=== PATIENT | male | born 1980 | race Caucasian/White ===

== ENCOUNTER 2017-01-30 08:17 | Emergency (ER) | payer BC, OTHER ==
[2017-01-30] MEDS ORDERED: HYDROMORPHONE HCL 2 MG/ML VIAL IM ONE (08:55)
[2017-01-30] MEDS ORDERED: ONDANSETRON 4 MG ODT TABLET SL ONE (08:55)
--- NOTE | 2017-01-30 09:00 | Emergency Department Record ---
History of Present Illness - General Chief Complaint: Back Pain/Injury Stated Complaint: BACK PAIN Time Seen by Provider: 01/30/17 08:48 Source: Patient Mode of Arrival: Wheelchair Limitations: No limitations - History of Present Illness Initial Comments: The patient is here due to lower back pain for about 24 hours. The pain has been slowly increasing since the onset and now the patient is having trouble standing and walking due to the pain. It does radiate down the L leg at times but the patient denies any leg weakness, numbness, or any bowel or bladder issues. He states he has a long hx of chronic back problems and has had similar issues in the past and usually just lays in bed until the pain passes. This episode caused him to call his father who also has chronic back issues and his father told him to call 911 to come to the ER. Complaint: Back pain Onset/Timin -: Days(s) Similar Symptoms Previously: Yes Place: Home, Work Radiation: Left leg Severity: Moderate Severity scale (1-10): 7 Quality: Aching Consistency: Constant, Getting worse Improves With: None Worsens With: Movement, Sitting upright, Walking Context: Unknown Treatments Prior to Arrival: NSAIDS, Prescription analgesics - Related Data Home Medications Medication Instructions Recorded Confirmed Last Taken Pentoxifylline 400 mg PO DAILY 01/30/17 01/30/17 1 Day Ago ~01/29/17 Previous Rx's Medication Instructions Recorded Cyclobenzaprine HCl [Flexeril] 10 mg PO TID PRN #20 tablet 01/30/17 Hydrocodone/Acetaminophen [[place] 1 - 2 each PO QID #20 tablet 01/30/17 5-325 Tablet] Naproxen [Naprosyn] 500 mg PO BID #14 tablet. 01/30/17 Ondansetron [Zofran Odt] 4 mg SL .Q4-6H PRN #12 tab.rapdis 01/30/17 Allergies Allergy/AdvReac Type Severity Reaction Status Date / Time codeine Allergy VOMITING Verified 01/30/17 08:41 Travel Screening - Travel/Exposure Within Last 30 Days Have you traveled within the last 30 days?: No - Travel/Exposure Within Last Year Have you traveled outside the [place] in the last year?: No - Additonal Travel Details Have you been exposed to anyone with a communicable illness?: No - Travel Symptoms Symptom Screening: None Review of Systems Constitutional: Denies: Chills, Fever Eyes: Denies: Eye discharge ENT: Denies: Congestion Respiratory: Denies: Cough, Dyspnea Past Medical History - SOCIAL HISTORY Smoking Status: Never smoker Alcohol Use: None Drug Use: Rare Drug Use Detail:: Marijuana - RESPIRATORY Hx Respiratory Disorders: No - CARDIOVASCULAR Hx Cardio Disorders: No - NEURO Hx Neuro Disorders: No - GI Hx GI Disorders: No - Hx Genitourinary Disorders: No - ENDOCRINE Hx Endocrine Disorders: No - MUSCULOSKELETAL Hx Musculoskeletal Disorders: No - PSYCH Hx Psych Problems: No - HEMATOLOGY/ONCOLOGY Hx Hematology/Oncology Disorders: No Family Medical History Any Significant Family History?: Yes Physical Exam - General General Appearance: Alert, Oriented x3, Cooperative, No acute distress - Head Head exam: Atraumatic, Normocephalic, Normal inspection - Eye Eye exam: Normal appearance, PERRL - Neck Neck exam: Normal inspection, Full ROM. negative: Tenderness - Respiratory Respiratory exam: Normal lung sounds bilaterally. negative: Respiratory distress - Cardiovascular Cardiovascular Exam: Regular rate, Normal rhythm, Normal heart sounds - GI/Abdominal GI/Abdominal exam: Soft, Normal bowel sounds. negative: Tenderness - Rectal Rectal exam: Other (I did attempt to perform a rectal exam to check for rectal tone but the patient refused.) - Extremities Extremities exam: Normal inspection, Full ROM, Normal capillary refill. negative: Tenderness - Neurological Neurological exam: Abnormal gait, Alert, Oriented X3, Reflexes normal (The patella and achilles reflexes are 2+ and equal bilaterally.), Other (Neg SLR bilaterally.). negative: Altered, Motor sensory deficit (The patient's motor and sensory exams are 5/5 and equal bilaterally.), Normal gait Course Vital Signs 01/30/17 08:32 Temperature 98.0 F Pulse Rate 67 Respiratory 18 Rate Blood Pressure 143/98 Pulse Ox 98 - Reevaluation(s) Reevaluation #1: The patient is doing better but is still having pain. I did offer to transfer the patient to another hospital for an MRI but he refused. I also did attempt to admit the patient to the hospital for pain control but he also refused that. He would like to just go home on pain medicines and will see his PCP later this week for further evaluation and possibly to have an MRI ordered. He understands by NOT doing the MRI emergently he could risk permanent neurological damage and accepts the risks. 01/30/17 10:00 Disposition Disposition: Discharge Clinical Impression: Lumbar paraspinal muscle spasm Disposition: Home, Self-Care Condition: (1) Good Instructions: Muscle Spasm (ED) Additional Instructions: Please rest and use the pain medicines as directed. Please see your PCP in 1-2 days for recheck. Return to the ER for any increased pain, leg numbness, weakness or any bowel or bladder incontinence or inability to urinate. Prescriptions: Cyclobenzaprine HCl [Flexeril] 10 mg PO TID PRN #20 tablet PRN Reason: Pain Hydrocodone/Acetaminophen [[place] 5-325 Tablet] 1 - 2 each PO QID #20 tablet Naproxen [Naprosyn] 500 mg PO BID #14 tablet. Ondansetron [Zofran Odt] 4 mg SL .Q4-6H PRN #12 tab.rapdis PRN Reason: Nausea Forms: Patient Portal Access Time of Disposition: 10:04 Quality - Quality Measures Quality Measures: N/A - Blood Pressure Screening View Details: Yes Blood Pressure Classification: Pre-Hypertensive BP Reading Systolic Measurement: 122 Diastolic Measurement: 77 Screening for High Blood Pressure: < Pre-Hypertensive BP, F/U Documented > [ [id number]] Pre-Hypertensive Follow-up Interventions: Follow-up with rescreen every year.
[2017-01-30] MEDS ORDERED: KETOROLAC 30 MG/ML VIAL IM ONE (09:31)
== END 2017-01-30 10:31 | disposition home or self-care (01) ==
LOC: ER 08:17
DX: M62.830 Muscle spasm of back (principal)
CPT/HCPCS: 99283 ×2; 96372; J1885; J1170